=== PATIENT | female | born 1970 | race Caucasian/White ===

== ENCOUNTER 2016-04-02 15:53 | Emergency (ER) | payer OTHER ==
[2016-04-02 15:59] VITALS: BP 146/74; PULSE 85; TEMP 98; BMI 25.0
--- NOTE | 2016-04-02 16:25 | PDOC ---
History of Present Illness - General Chief Complaint: RX Refill Stated Complaint: i need a percocet refill Time Seen by Provider: 04/02/16 16:00 History Source: Patient Exam Limitations: No Limitations - History of Present Illness Initial Comments: 45 yo F history herniated discs, chronic neck and back pain presents requesting percocet refill. She follows up with pain management, states that her provider recommend that she "double up" on the percocet at nighttime for worsening pain. She states that she ran out of medication, and the soonest she can have an appointment is in 3 days. Denies N/V/D. Anxious and tearful on interview. Past History - Past Medical History Allergies/Adverse Reactions: Allergies Allergy/AdvReac Type Severity Reaction Status Date / Time No Known Allergies Allergy Verified 02/18/16 16:33 Home Medications: Ambulatory Orders Oxycodone HCl/Acetaminophen [Percocet 5/325 -] 10 mg PO Q4H 05/15/15 Alprazolam [Xanax] 2 mg PO DAILY 02/18/16 GI Disorders: Yes (congenital malrotation) Psychiatric Problems: Yes (anxiety) - Surgical History Abdominal Surgery: Yes (ovarian cyst ruture) Cholecystectomy: Yes - Family Disease History Family Disease History: Diabetes: Grandparents (paternal grandfather), Heart Disease: Grandparents - Psycho/Social/Smoking Cessation Hx Anxiety: Yes Suicidal Ideation: No Smoking Status: Yes Smoking History: Current every day smoker Number of Cigarettes Smoked Daily: 20 Information on smoking cessation initiated: Yes 'Breaking Loose' booklet given: 04/02/16 Hx Alcohol Use: No Drug/Substance Use Hx: No Substance Use Type: Prescribed Hx Substance Use Treatment: No Review of Systems - Review of Systems Able to Perform ROS?: Yes Comments:: GENERAL/CONSTITUTIONAL: No fever or chills. No weakness. HEAD, EYES, EARS, NOSE AND THROAT: No change in vision. No ear pain or discharge. No sore throat. CARDIOVASCULAR: No chest pain or shortness of breath. RESPIRATORY: No cough, wheezing, or hemoptysis. GASTROINTESTINAL: No nausea, vomiting, diarrhea or constipation. GENITOURINARY: No dysuria, frequency, or change in urination. MUSCULOSKELETAL: No joint or muscle swelling or pain. No neck or back pain. SKIN: No rash NEUROLOGIC: No headache, vertigo, loss of consciousness, or change in strength/ sensation. ENDOCRINE: No increased thirst. No abnormal weight change. HEMATOLOGIC/LYMPHATIC: No anemia, easy bleeding, or history of blood clots. ALLERGIC/IMMUNOLOGIC: No hives or skin allergy. *Physical Exam - Vital Signs Last Vital Signs Temp Pulse Resp BP Pulse Ox 98 F 85 18 146/74 100 04/02/16 15:54 04/02/16 15:54 04/02/16 15:54 04/02/16 15:54 04/02/16 15:54 - Physical Exam Comments: GENERAL: Awake, alert, and fully oriented, in no acute distress HEAD: No signs of trauma EYES: PERRLA, EOMI, sclera anicteric, conjunctiva clear ENT: Auricles normal inspection, hearing grossly normal, nares patent, oropharynx clear without exudates. Moist mucosa NECK: Normal ROM, supple, no lymphadenopathy, JVD, or masses EXTREMITIES: Normal range of motion, no edema. No clubbing or cyanosis. No cords, erythema, or tenderness NEUROLOGICAL: Cranial nerves II through XII grossly intact. Normal speech, normal gait SKIN: Warm, Dry, normal turgor, no rashes or lesions noted. Medical Decision Making - Medical Decision Making 04/02/16 16:35 Discussion with patient at bedside. We reviewed i-STOP report (reference # [id number]). She filled rx for percocet 10/325 on 03/11/16 for 120 tabs, 30 day supply. She subsequently filled rx for oxycodone ER 20mg tabs - 10 tabs on . This would mean that she was taking almost ten tabs per day of the 10/325 strength. I explained that I am not comfortable refilling medications of this strength, and that it is alarming how quickly she is using them. Best course of action would be to present to her pain management physician's office for follow- up, to request appointment. Medication like this should be consistently prescribed by the same provider, and followed carefully. *DC/Admit/Observation/Transfer Diagnosis at time of Disposition: Medication refill Chronic pain Qualifiers: Chronic pain type: chronic pain syndrome Qualified Code(s): G89.4 - Chronic pain syndrome Opiate dependence Qualifiers: Substance use status: uncomplicated Qualified Code(s): F11.20 - Opioid dependence, uncomplicated - Discharge Dispostion Disposition: HOME Condition at time of disposition: Stable Admit: No - Patient Instructions Printed Discharge Instructions: DI for Chronic Pain -- Adult
== END 2016-04-02 16:27 | disposition home or self-care (01) ==
LOC: FER 15:53
DX: Z76.0 Encounter for issue of repeat prescription (principal); G89.4 Chronic pain syndrome; F11.20 Opioid dependence, uncomplicated; F17.210 Nicotine dependence, cigarettes, uncomplicated
CPT/HCPCS: 99282-25

== ENCOUNTER 2016-08-04 06:01 | Inpatient (IN) | payer OTHER ==
[2016-07-29 12:12] VITALS: BMI 26.6
--- NOTE | 2016-08-04 07:50 | PN ---
Progress Note (short form) - Note Progress Note: NEUROSURGERY PREOP Significant other and father at bedside Tx'd (Cipro per PMD) for UTI after + WBC and leukocyte esterase in UA Neck pain and radicular symptoms without change Incision marked Expected OR time explained All questions answered at bedside Will obtain urine culture with Lagunas in OR
[2016-08-04] MEDS ORDERED: MIDAZOLAM HCL 2 MG/2 ML SINGLE DOSE VIAL ONE (08:12)
[2016-08-04] MEDS ORDERED: BACITRACIN 15 GM TUBE TOPICAL OINTMENT ONE (08:24)
[2016-08-04] MEDS ORDERED: ROCURONIUM BROMIDE 50 MG/5 ML VIAL ONE (08:25)
[2016-08-04] MEDS ORDERED: PROPOFOL 20 ML ONE ×17 (08:25→11:45)
[2016-08-04] MEDS ORDERED: ceFAZolin SODIUM 1 GM VIAL IVPB ONE (08:27)
[2016-08-04] MEDS ORDERED: CEFAZOLIN (PRE-DOCKED) 50 ML IVPB ONE (08:30)
[2016-08-04] MEDS ORDERED: ceFAZolin SODIUM 1 GM VIAL ONE ×2 (08:54→09:16)
[2016-08-04] MEDS ORDERED: LIDOCAINE HCL/PF 2% SDV 5ML VIAL ONE (08:54)
[2016-08-04] MEDS ORDERED: LIDOCAINE HCL 2% JELLY (5 ML/TUBE) ONE (08:54)
[2016-08-04] MEDS ORDERED: BENZOIN/ALOE VERA/STORAX/TOLU 58 ML BOTTLE ONE (08:54)
[2016-08-04] MEDS ORDERED: DEXAMETHASONE SOD PHOSPHATE 4 MG/1 ML VIAL ONE ×2 (09:16→12:12)
[2016-08-04] MEDS ORDERED: BACITRACIN 50,000 UNITS VIAL TP ONE (09:17)
[2016-08-04] MEDS ORDERED: BACITRACIN 50,000 UNITS VIAL IM ONE (10:19)
[2016-08-04] MEDS ORDERED: BUPIVACAINE HCL/PF 0.5% (5MG/ML) 10 ML VIAL IJ ONE (10:20)
[2016-08-04] MEDS ORDERED: THROMBIN (BOVINE) 5,000 UNIT VIAL TP ONE (10:20)
--- NOTE | 2016-08-04 12:07 | OP ---
Operative Note - Note: Operative Date: 08/04/16 Pre-Operative Diagnosis: C4-5, C5-6, C6-7 HNP, stenosis, radiculopathy Operation: Sathish long; anterior cervical discectomies C4-5, C5-6, C6-7 ; partial corpectomies C4,5,6,7; B foramenotomies C4-5, C5-6, C6-7 for decompression of cord and B C5,6,7 roots; interbody fusion C4-5, C5-6, C6-7; interbody implants C4-5, C5-6, C6-7; anterior instrumentation C4-7; microdissection Findings: Sensitive Roots B C5 and C6 > C7; fibrotic discs; stenosis in canal and prox foramen C4-5 and C5-6 > C6-7; severe degenerative disc space narrowing at C4-5, C5-6 > C6-7 Implants: Joel SPine Invizia 57 mm plate and 14 mm screws (fixed at C7 and variable at C4,5,6); 7 mm [place] interbody implant @ C6-7 and 6 mm implants @ C4 -5 and C5-6 Post-Operative Diagnosis: Same as Pre-op Surgeon: Salbador Arroyo Fitness Floor Attendant: Justine Cuellar Anesthesiologist/POOL TABLE OPERATOR: Monika Solitario MD Anesthesia: General Specimens Removed: C4-5, C5-6, C6-7 discs Estimated Blood Loss (mls): 50 Operative Report Dictated: Yes
[2016-08-04] MEDS ORDERED: ONDANSETRON 4 MG/2 ML VIAL IVPB PRN (12:11)
[2016-08-04] MEDS ORDERED: BACITRACIN 15 GM TUBE TOPICAL OINTMENT TP ONE (12:20)
[2016-08-04] MEDS ORDERED: DEXAMETHASONE SOD PHOSPHATE 4 MG/1 ML VIAL IVPUSH PRN (12:40)
[2016-08-04] MEDS ORDERED: HYDROmorphone *PCA* 10MG/50ML DISP.SYRIN PCA ONE ×2 (13:21→13:30)
--- NOTE | 2016-08-04 13:24 | PN ---
Progress Note (short form) - Note Progress Note: NEUROSURGERY In PACU Incisional pain In collar AF, VSS O2 sat 99% Motor at least 4-/5 B UE/LE Sensation grossly intact Dressing intact Findings d/e pt and family All questions answered MRI discs returned to family by RN TIMING MACHINE OPERATOR for pain C spine x-rays in AM
[2016-08-04] MEDS: HYDROmorphone *PCA* 10MG/50ML DISP.SYRIN PCA SCH (16:01)
[2016-08-04] MEDS: D5-1/2NS+20 MEQ KCL - 1,000 ML IV SCH ×2 (16:01→22:02)
[2016-08-04] MEDS: DOCUSATE SODIUM 100 MG CAPSULE (FP) PO SCH ×2 (16:01→22:05)
[2016-08-04] MEDS: LACTATED RINGERS SOLUTION 1,000 ML IV SCH (16:01)
[2016-08-04] MEDS: diazePAM 5 MG TABLET PO SCH ×2 (16:59→22:05)
[2016-08-04] MEDS: oxyCODONE HCL 5 MG TABLET PO PRN ×2 (18:29→22:05)
[2016-08-04] MEDS: CEFAZOLIN (PRE-DOCKED) 50 ML IVPB SCH (18:30)
[2016-08-05] MEDS: CEFAZOLIN (PRE-DOCKED) 50 ML IVPB SCH (01:20)
[2016-08-05] MEDS: HYDROmorphone *PCA* 10MG/50ML DISP.SYRIN PCA SCH ×3 (04:13→15:11)
[2016-08-05] MEDS: oxyCODONE HCL 5 MG TABLET PO PRN ×3 (04:17→14:47)
[2016-08-05] MEDS: diazePAM 5 MG TABLET PO SCH ×3 (05:45→21:07)
[2016-08-05] MEDS: DOCUSATE SODIUM 100 MG CAPSULE (FP) PO SCH ×3 (05:45→21:07)
--- NOTE | 2016-08-05 07:38 | PN ---
Progress Note (short form) - Note Progress Note: NEUROSURGERY POD #1 Incisional pain, muscle spasm and sore throat Able to pull herself up now (not able to do pre-op) Would like to go home Tmax 98.9, VSS PE: CV- RR; Lungs- CTA B; Abs- benign; Ext- no sign of DVT Dressing C/D/I- mild skin redness to adhesive; changed Motor UE 4+ B and improved Sensation grossly intact LT Urine culture pending C-collar fitting well C-spine X-rays today PT Pain meds D/C Lagunas Incentive spirometry
[2016-08-05] MEDS ORDERED: DEXAMETHASONE SOD PHOSPHATE 4 MG/1 ML VIAL IVPB ONE (09:30)
--- NOTE | 2016-08-05 10:43 | PN ---
Progress Note (short form) - Note Progress Note: Anesthesia postop note and pain management follow up 46y/o Fs/p GA for anterior cervical decompression and fusion c4c7, dilaudid watch case polisher POD#1, vss, aaox3, pain fairly well controlled, using watch case polisher Will continue watch case polisher. No anesthesia complications.
[2016-08-05] MEDS: D5-1/2NS+20 MEQ KCL - 1,000 ML IV SCH ×2 (11:03→12:14)
--- NOTE | 2016-08-05 11:29 | SURG ---
Surgery Photo Mask Processor Note Photo Mask Processor: Justine Cuellar PA-C Date of Service: 08/05/16 Diagnosis: C4-5, C5-6, C6-7 HNP, stenosis, radiculopathy Procedure: Sathish long; anterior cervical discectomies C4-5, C5-6, C6-7; partial corpectomies C4,5,6,7; B foramenotomies C4-5, C5-6, C6-7 for decompression of cord and B C5,6,7 roots; interbody fusion C4-5, C5-6, C6-7; interbody implants C4-5, C5-6, C6-7; anterior instrumentation C4-7; microdissection I was present for the entirety of the operative procedure. For further detail, please refer to operative report. Visit type - Case Type Case Type: Scheduled Admission - Emergency Emergency Visit: No - New patient This patient is new to me today: Yes Date on this admission: 08/05/16 - Critical Care Critical Care patient: No
[2016-08-05] MEDS: LACTATED RINGERS SOLUTION 1,000 ML IV SCH (13:58)
--- NOTE | 2016-08-05 14:41 | PATH ---
Surgical Pathology Report Patient Name: GEMA KNIGHT Med. Rec. #: [id number] /Age/Gender: 1970 (Age: 46) / F Account: [id number] Location: [facility] MED/SURG Taken: 08/04/2016 Received: 08/04/2016 Reported: 08/05/2016 Physicians: Salbador Arroyo M.D. Specimen(s) Received DISC C4-7 Clinical History Cervical disc displacement radiculopathy C4-7 Final Diagnosis INTERVERTEBRAL DISC, C4-7, ANTERIOR CERVICAL DECOMPRESSION FUSION: FRAGMENTS OF CARTILAGE WITH DEGENERATIVE CHANGES. Electronically Signed Kyle Larkin M.D. Gross Description Received in formalin labeled "disc C4-7" is a 3.0 x 1.7 x 0.3 cm aggregate of joyner fragments of fibrocartilaginous tissue. A direct marketing representative portion is submitted in one cassette, following decalcification. /08/04/201608/04/2016
[2016-08-05] MEDS: TAPENTADOL HYDROCHLORIDE 50 MG TABLET PO PRN (18:56)
[2016-08-06] MEDS: TAPENTADOL HYDROCHLORIDE 50 MG TABLET PO PRN ×5 (01:44→18:56)
[2016-08-06] MEDS: diazePAM 5 MG TABLET PO SCH ×3 (06:33→21:57)
[2016-08-06] MEDS: DOCUSATE SODIUM 100 MG CAPSULE (FP) PO SCH ×3 (06:34→21:57)
--- NOTE | 2016-08-06 07:18 | PN ---
Progress Note (short form) - Note Progress Note: NEUROSURGERY POD #2 Seen late last night again Incisional pain Sore throat better, received decadron earlier Able to void fine after Lagunas out Emotional at times, stating past psychological issues but could not tolerate meds Tmax 99, VSS PE: CV- RR; Lungs- CTA B; Abs- benign; Ext- no sign of DVT Dressing C/D/I- minimal skin redness to adhesive; changed Motor UE 4+ B and improved Sensation grossly intact LT Urine culture pending C-spine X-rays- prevertebral soft tissue swelling, implants intact C4-7 PT Pain meds changed Incentive spirometry Tentatively for discharge
--- NOTE | 2016-08-06 08:36 | PN ---
Progress Note (short form) - Note Progress Note: POD#2 The patient overall feels better. She had a bowel movement today and is tolerating clears. No difficulty swallowing but has some pain with swallowing. OOB yesterday with physical therapy and feels stronger in her right upper extremity. Vital Signs Period Temp Pulse Resp BP Sys/Silver Pulse Ox Last 24 Hr 97.6 F-99.0 F 58-79 18-18 116-149/66-90 98-98 PE: GEN: A&0x3, NAD CV: RRR Lungs: CTA b/l anteriorly Neck: dressing c/d/i, no evidence of hematoma/ecchymosis. soft. tegaderm in place with cervical collar. Neuro: Motor to right upper ext 4/5 b/l. Able to raise RUE unsupported to shoulder height(improved since surgery) sensation intact b/l LE: no evidence of swelling or calf tenderness. SCD/TEDs in place. Microbiology 08/04/16 09:20 Urine - Urine Clean Catch Urine Culture - Final NO GROWTH OBTAINED A/P: 46 yo male s/p anterior cervical discectomies interbody fusion C4-5, C5-6, C6-[address] Arroyo regarding her care Oral narcotic pain medications ordered as well as standing valium. Transition to oral pain meds and discontinue IV MISSILE INSPECTOR Clears for now and possible advance today as tolerated OOB and ambulate with physical therapy today Continue DVT ppx with SATNAM/SCDs
[2016-08-06] MEDS ORDERED: IBUPROFEN 600 MG TABLET (FP) PO PRN (10:16)
--- NOTE | 2016-08-06 10:19 | PN ---
Progress Note (short form) - Note Progress Note: Anesthesia follow up Doing well. taking oral liquids. Discontinuing the JIG AND FIXTURE BUILDER to oral pain meds Nancy Breaux MD.
[2016-08-06] MEDS ORDERED: ACETAMINOPHEN 325 MG TABLET (FP) PO PRN (12:32)
[2016-08-06] MEDS ORDERED: ACETAMINOPHEN 325 MG TABLET (FP) PO STA (12:40)
[2016-08-06] MEDS ORDERED: HYDROmorphone HCL CARPU-JECT 1 MG/1 ML DISP.SYRIN IVPB ONE ×2 (13:00)
[2016-08-06] MEDS ORDERED: HYDROmorphone HCL CARPU-JECT 1 MG/1 ML DISP.SYRIN ONE (13:00)
[2016-08-06] MEDS: ACETAMINOPHEN 325 MG TABLET (FP) PO SCH ×3 (14:58→21:57)
[2016-08-06] MEDS: D5-1/2NS+20 MEQ KCL - 1,000 ML IV SCH (15:59)
[2016-08-06] MEDS: LACTATED RINGERS SOLUTION 1,000 ML IV SCH (16:00)
[2016-08-06] MEDS: HYDROmorphone HCL CARPU-JECT 1 MG/1 ML DISP.SYRIN IVPB PRN (19:42)
[2016-08-07] MEDS: ACETAMINOPHEN 325 MG TABLET (FP) PO SCH ×3 (02:07→10:23)
[2016-08-07] MEDS: TAPENTADOL HYDROCHLORIDE 50 MG TABLET PO PRN ×2 (02:08→11:54)
[2016-08-07 05:57] VITALS: TEMP 97.6
[2016-08-07] MEDS: diazePAM 5 MG TABLET PO SCH (06:08)
[2016-08-07] MEDS: HYDROmorphone HCL CARPU-JECT 1 MG/1 ML DISP.SYRIN IVPB PRN (06:08)
[2016-08-07] MEDS: DOCUSATE SODIUM 100 MG CAPSULE (FP) PO SCH (06:09)
[2016-08-07 07:01] VITALS: BP 144/86; PULSE 79
[2016-08-07] MEDS ORDERED: ALPRAZolam 2 MG TABLET PO SCH ×2 (07:15)
--- NOTE | 2016-08-07 11:07 | OP ---
DATE OF OPERATION: 08/04/2016 PREOPERATIVE DIAGNOSES: 1. C4-5 and C5-6 greater than C6-7 degenerative disk protrusion with cervical stenosis and bilateral cervical radiculopathy. 2. History of right shoulder surgery. POSTOPERATIVE DIAGNOSES: 1. C4-5 and C5-6 greater than C6-7 degenerative disk protrusion with cervical stenosis and bilateral cervical radiculopathy. 2. History of right shoulder surgery. ATTENDING SURGEON: Salbador Arroyo MD PRACTICE BILLING ASSOCIATE: JONY Nguyễn ANESTHESIA: General endotracheal. ANESTHESIOLOGIST: Monika Solitario MD ESTIMATED BLOOD LOSS: 50 mL. PROCEDURE: 1. Preoperative placement and postoperative removal of cranial traction tongs for intraoperative traction (98792). 2. Anterior cervical microdiskectomy, C4-5, C5-6, and C6-7. 3. Microsurgical dissection with operating microscope and microsurgical technique (76833). 4. Partial corpectomy: C4, C5, C6, and C7, for spinal cord and proximal cervical root decompression including diskectomy and proximal neural foraminotomies bilaterally at C4-5, C5-6 and C6-7 (44284, 57075, 99339, and 06007). 5. Anterior cervical interbody fusion, C4-5, C5-6, and C6-7 (29419, 56672, and 54518). 6. Utilization of intervertebral lordotic bony prosthetic device from [employer] (at C4-5, C5-6, and C6-7) (91323, 01748-69, and 15459-19). 7. Anterior cervical instrumentation with Joel spine Invizia titanium system (57-mm titanium plate and 14-mm titanium screw at C4, C5, C6 and C7, with fixed angle screws at C7 and the remainder being variable angle screws) (89673). FINDINGS: 1. Severe degenerative disk space narrowing at C4-5, C5-6, greater than C6-7. 2. Extensive bilateral cervical roots, bilaterally at C5, C6, and C7. 3. Bilateral disk protrusion at C4-5 and C5-6, greater than C6-7. INDICATIONS: The patient is a 46-year-old female with a history of neck pain and cervical radiculopathy. Because of intractable symptoms and failure of conservative treatment, she is now consented for anterior cervical decompression and fusion with instrumentation. The risks of procedure include but are not limited to bleeding , infection, dural tear with CSF leak, neurological injury including thromboembolic risks, hoarseness, swallowing difficulties, and other risks of general anesthesia. The patient understands the indications for the procedure, procedure in detail, risks and benefits and alternatives for treatment of cervical spine condition, and wished to proceed. No guarantees given for a favorable outcome. Intraoperative SSEP, EMG and MEP signals were monitored. PROCEDURE IN DETAIL: The patient was taken to the operating room. She was placed in supine position. After general anesthesia was induced and appropriate lines were placed, SSEP, EMG, and MEP electrodes were placed by the optical lab technician. A Lagunas catheter was also inserted and urine culture was sent. The head was secured in Saldivar horseshoe in a neutral position. Cranial traction tongs were applied with bacitracin ointment. No traction weight was placed until baseline SSEP, EMG and MEP signals were obtained. The shoulders were taped on the sides. Anterior cervical region cleaned with alcohol and prepped with Betadine and local anesthesia was obtained. An approximately 2-1/2-inch incision was made with a number 10 blade. Skin was entered with Metzenbaum scissors. Self-retaining retractors were inserted. The platysma muscle was split longitudinally with the Metzenbaum scissors. Dissection proceeded medially through carotid sheath and longitudinally to trachea and esophagus. The prevertebral space was skeletonized with Kitners. One spinal needle each was inserted into C4-5 and C5-6 each, and after position was verified, longus colli muscles were reflected laterally with periosteal elevator and monopolar electrocautery and coagulated with bipolar electrocautery. Self-retaining radiolucent_ retractor system was inserted. A slightly more righted sided approach was chosen to address the predominantly right sided pathology and symptoms. At this point, annulus of C4-5 and C5-6 was incised with a number 15 blade. The disk space was so collapsed that the blade could not be turned vertically. Similarly, an annular incision was made at C4-5 and C6-7. This was done under direct vision. Diskectomy was first carried out at C5-6 but it was nearly impossible because of severe markedly degenerative disk space narrowing. Partial corpectomy at C5-6 was first carried out on the bottom vertebral body of C5 and top vertebral body of C6. Significant posterior osteophyte was noted encroaching on the spinal canal as well as the proximal neural foramen. This was burred down and resected with angled curette and Kerrison rongeur. A bilateral foraminotomy was carried out with angled curette and Kerrison rongeur. The AP diameter of disk space was sized to be approximately 16 mm. Epidural hemostasis was obtained with bipolar electrocautery and thrombin- soaked powdered Gelfoam. Attention was then turned to the C4-5 disk space, where diskectomy was similarly carried out. This was done with a combination of pituitary rongeur, straight- angled curette, as well as Kerrison rongeur. The posterior longitudinal ligament was resected with angled curette and Kerrison rongeur, and bilateral foraminotomy was carried out with angled curette and Kerrison rongeur after the uncovertebral joint was burred down with the help of the pneumatic drill. This helped gain access into the proximal neural foramen. Hemostasis was obtained with bipolar electrocautery. Finally, the partial corpectomy at C4 and C5 was also carried out in order to gain access to the spinal canal as well as the proximal neural foramen. Attention was then turned to the C6-7 interspace, where disk material was similarly removed. This level was slightly taller in height. Bilateral foraminotomy was similarly carried out, and hemostasis was obtained with bipolar electrocautery and thrombin-soaked powdered Gelfoam. Traction was slowly increased first from 0 to then 5 and then 10 pounds. The height in the disk space was 7 mm after the decompression at C6-7 and then 6 mm at C4-5 and C5-6. The 7-mm implant was first placed at C6 -7 and it was countersunk by 1 to 2 mm. This procedure was repeated at C5-6 and C4 -5, where 6-mm lordotic implants were placed and countersunk similarly. MEP signal remained stable throughout. There were no aberrant EMG activities. A 57-mm Invizia titanium plate was secured with fixation pins and 14-mm screws were used. Variable-angle screws were used at C4, C5, and C6, and fixed-angle screws were used at C7. The final cervical spine x-ray demonstrated satisfactory position of the implants. The locking mechanism/screw system were engaged. The wound was irrigated with copious amount of antibiotic and irrigation. A layer of surgical layered on top was placed as well as the dissection tract. Esophagus, trachea, as well as carotid sheath were all in good condition. At this point, the platysma muscle was approximated with 3-0 Vicryl sutures. Subcutaneous fascia was closed with 3-0 Vicryl sutures as well. Skin was closed with 4-0 Vicryl running subcuticular suture. Steri-Strips and sterile occlusive dressing was applied. Patient tolerated procedure well and was extubated in operating room. A rigid cervical collar was applied in the operating room. All needle and lap counts were correct. The patient received 1 dose of 1 g of Ancef and 10 mg of dexamethasone prior to the incision. Patient was starting to move bilateral upper and lower extremities well while in the operating room itself. All needle and lap counts were correct. The OR time-out procedure was followed. The patient's family was updated as to the intraoperative findings. SALBADOR ARROYO M.D. [id number] MTDD
[2016-08-07] MEDS ORDERED: oxyCODONE HCL 5 MG TABLET PO PRN (11:53)
--- NOTE | 2016-08-07 11:53 | PN ---
Progress Note (short form) - Note Progress Note: NEUROSURGERY POD #3 Incisional pain Multiple medication adjustments Sore throat better Able to void and had BM Emotional at times Significant other at bedside R shoulder pain mostly AF, VSS PE: CV- RR; Lungs- CTA B; Abs- benign; Ext- no sign of DVT Dressing C/D/I- minimal skin redness to adhesive; changed Motor UE 4+ B and improved Sensation grossly intact LT Urine culture pending C-spine X-rays- prevertebral soft tissue swelling, implants intact C4-7 CT C spine- C4-7 anterior decompression and instrumentation; implants intact; disc spaces restored PT Pain meds changed for discharge Add Neurontin Incentive spirometry Tentatively for discharge today later D/c and wound instructions given VNS
[2016-08-07] MEDS ORDERED: GABAPENTIN 300 MG CAPSULE (FP) PO SCH (14:00)
== END 2016-08-07 13:58 | disposition home or self-care (01) | DRG 23 ==
LOC: JSAMEDAYSX 06:01 → J8W 15:11
PROVIDERS: ADMIT Neurological Surgery; ATTEND Neurological Surgery
PROC: 0RG20J0 Fusion of 2 or more Cervical Vertebral Joints with Synthetic Substitute, Anterior Approach, Anterior Column, Open Approach (ICD-10-PCS; 2016-08-04)
PROC: 4A11X4G Monitoring of Peripheral Nervous Electrical Activity, Intraoperative, External Approach (ICD-10-PCS; 2016-08-04)
PROC: 0RT30ZZ Resection of Cervical Vertebral Disc, Open Approach (ICD-10-PCS; principal; 2016-08-04 08:00)
DX: M50.123 Cervical disc disorder at C6-C7 level with radiculopathy (principal); M48.02 Spinal stenosis, cervical region; J02.9 Acute pharyngitis, unspecified
CPT/HCPCS: 72050-TC; 72125-TC; 84703; 86850; 86900; 86901; 87086; 88304-TC; 94760; 97116-GP; 97161-GP

== ENCOUNTER 2016-08-20 01:14 | Emergency (ER) | payer OTHER ==
[2016-08-20 01:24] VITALS: TEMP 97.8; BMI 27.3
--- NOTE | 2016-08-20 03:31 | PDOC ---
History of Present Illness - General Chief Complaint: Lethargy Stated Complaint: NECK PAIN Time Seen by Provider: 08/20/16 01:23 - History of Present Illness Initial Comments: 08/20/16 03:45 CHIEF COMPLAINT: lethargy HISTORY OF PRESENT ILLNESS: 46 yo F with hx of h/o congenital "malrotation of bowel", chronic constipation,s/p faby, ovarian cyst rupture s/p oophorectomy/ salpingectomy, herniated disc s/p cervical spine surgery 2 weeks ago BIBEMS for lethargy. Per EMS patient was found sleeping in her car. Patient reports that she felt tired and called EMS herself. She states that she and her surgeon are trying to "wean her off the pain medications" and he started her on gabapentin recently, which makes her feel drowsy. She states she took one gabapentin yesterday around 11 pm and started feeling drowsy and like she couldn 't drive, so she called EMS. No recent travel or sick contacts. PAST MEDICAL HISTORY: as per HPI FAMILY HISTORY: Denies SOCIAL HISTORY: Denies tobacco, alcohol, illicit drug use. SURGICAL HISTORY: Denies ALLERGIES: No known drug allergies REVIEW OF SYSTEMS General/Constitutional: Denies fever or chills. Denies weakness, weight change. HEENT: Denies change in vision. Denies ear pain or discharge. Denies sore throat. Cardiovascular: Denies chest pain or shortness of breath. Respiratory: Denies cough, wheezing, or hemoptysis. Gastrointestinal: Denies nausea, vomiting, diarrhea or constipation. Denies rectal bleeding. Genitourinary: Denies dysuria, frequency, or change in urination. Musculoskeletal: Pain to neck s/p surgery. Skin and breasts: Denies rash or easy bruising. Neurologic: Denies headache, vertigo, loss of consciousness, or loss of sensation. PHYSICAL EXAM General Appearance: Somnolent. HEENT: EOMI, PERRLA. No conjunctival pallor. No photophobia, scleral icterus. Neck: Patient in cervical spine collar s/p surgery on 08/04. Respiratory/Chest: Lungs CTAB. Cardiovascular: RRR. S1, S2. Vascular Pulses: Dorsalis-Pedis (R): 2+, Dorsalis-Pedis (L): 2+ Gastrointestinal/Abdominal: Normal bowel sounds. Abdomen soft, non-distended. No tenderness or rebound tenderness. No organomegaly, pulsatile mass, guarding , hernia, hepatomegaly, splenomegaly. Musculoskeletal/Extremities: Normal inspection. FROM of all extremities, normal capillary refill. Pelvis Stable. No CVA tenderness. No tenderness to extremities, pedal edema, swelling, erythema or deformity. Integumentary: Appropriate color, dry, warm. 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 Fully oriented, alert. Appropriate mood/affect. Motor strength 5/5. No appreciable EOM palsy, facial droop or sensory deficit. 08/20/16 03:51 Past History - Past Medical History Allergies/Adverse Reactions: Allergies Allergy/AdvReac Type Severity Reaction Status Date / Time No Known Allergies Allergy Verified 08/20/16 01:20 Home Medications: Ambulatory Orders Alprazolam [Xanax] 2 mg PO PRN PRN 02/18/16 Bisacodyl [Ducodyl] 5 mg PO HS 07/29/16 Oxycodone HCl [Roxicodone -] 20 mg PO Q6H PRN #60 tablet MDD 4 08/07/16 Anemia: No GI Disorders: Yes (congenital malrotation) Psychiatric Problems: Yes (anxiety) Thyroid Disease: (NODULE - "WATCHING") - Surgical History Abdominal Surgery: Yes (ovarian cyst) Cholecystectomy: Yes Neurologic Surgery: Yes (cervical (neck)) Orthopedic Surgery: Yes (RT SHOULDER TEAR REPAIR) - Family Disease History Family Disease History: Diabetes: Grandparents (paternal grandfather), Heart Disease: Grandparents - Psycho/Social/Smoking Cessation Hx Anxiety: Yes Suicidal Ideation: No Smoking Status: Yes Smoking History: Current some day smoker Have you smoked in the past 12 months: Yes Number of Cigarettes Smoked Daily: 20 Information on smoking cessation initiated: No 'Breaking Loose' booklet given: 07/29/16 Hx Alcohol Use: No Drug/Substance Use Hx: No Substance Use Type: Prescribed Hx Substance Use Treatment: No *Physical Exam - Vital Signs Last Vital Signs Temp Pulse Resp BP Pulse Ox 97.8 F 86 16 131/80 96 08/20/16 01:22 08/20/16 01:22 08/20/16 01:22 08/20/16 01:22 08/20/16 01:22 ED Treatment Course - LABORATORY CBC & Chemistry Diagram: 08/20/16 03:55 08/20/16 03:55 Medical Decision Making - Medical Decision Making 08/20/16 03:59 46 yo F with hx of h/o congenital "malrotation of bowel", chronic constipation,s /p faby, ovarian cyst rupture s/p oophorectomy/salpingectomy, herniated disc s/ p cervical spine surgery 2 weeks ago BIBEMS for lethargy. Patient somnolent on arrival but VSS. Patient reassessed 1 hour later, continues to be lethargic but rousable and able to complete history and PE. Patient appears to be drowsy secondary to pain medications. -CBC, CMP, acetaminophen, salicylate -Utox -IVF [place] [facility] referenced. Patient Name: Alla Barber Date: 1970 Address: [address] [place] [address] Sex: Female Rx Written Rx Dispensed Drug Quantity Days Supply Prescriber Name 08/07/2016 08/07/2016 oxycodone hcl 20 mg tablet 60 15 Salbador Arroyo T MD 07/29/2016 07/29/2016 oxycodone-acetaminophen 10-325 mg tab 90 30 Sukhwinder Eastman 07/29/2016 07/29/2016 alprazolam 2 mg tablet 60 30 Sukhwinder Eastman 07/29/2016 07/29/2016 alprazolam 1 mg tablet 90 30 Sukhwinder Eastman 07/14/2016 07/16/2016 hydrocodone-acetaminophen 10-325 mg tablet 90 22 Aidan Taylor MD 07/01/2016 07/01/2016 oxycodone-acetaminophen 10-325 mg tab 28 7 Dharmesh Paez 07/01/2016 07/01/2016 alprazolam 2 mg tablet 60 30 Sukhwinder Eastman 05/26/2016 05/26/2016 alprazolam 2 mg tablet 60 30 Sukhwinder Eastman 05/09/2016 05/14/2016 hydrocodone-acetaminophen 10-325 mg tablet 120 30 Aidan Taylor MD 05/09/2016 05/10/2016 alprazolam 1 mg tablet 90 30 Sukhwinder Eastman 04/29/2016 04/29/2016 oxycodone-acetaminophen 10-325 mg tab 56 14 Sukhwinder Eastman 04/18/2016 04/18/2016 oxycodone-acetaminophen 10-325 mg tab 56 14 Sukhwinder Eastman Patient has received an alarming amount of pain medication within the last 3 weeks. Patient persistent complains of pain and is becoming agitated. Patient states "just give me the paperwork now so I can get out of here if you aren't going to give me pain medication." -30 mg IV Toradol *DC/Admit/Observation/Transfer Diagnosis at time of Disposition: Opiate dependence Qualifiers: Substance use status: with unspecified opioid-induced disorder Qualified Code(s ): F11.29 - Opioid dependence with unspecified opioid-induced disorder - Discharge Dispostion Disposition: HOME Condition at time of disposition: Stable Admit: No - Referrals Referrals: Salbador Arroyo MD [Staff Physician] - Germán Brooke MD [Staff Physician] - - Patient Instructions Printed Discharge Instructions: DI for Prescription Opioid Use Additional Instructions: You must follow up with a pain management doctor and discuss your dependence on opioids as well as how to better manage your pain. Please follow up with Dr. Arroyo for further management of post operative care. If you experience difficulty breathing, dizziness, chest pain, loss of consciousness, loss of sensation, or any new or worsening symptoms, please return to the ER.
[2016-08-20] MEDS ORDERED: SODIUM CHLORIDE 0.9% 1000 ML INFUS.BAG IV ONE (03:46)
[2016-08-20 03:59] LABS: EOSINOPHIL 6.3 % (0-4.5); MCH 30.1 pg (25.7-33.7); MCHC 33.1 g/dl (32.0-36.0); PLATELET COUNT 288 K/MM3 (134-434); WHITE BLOOD COUNT 5.2 K/mm3 (4.0-10.0)
[2016-08-20 04:30] LABS: ALBUMIN 3.3 g/dl (3.4-5.0); ALK PHOS 74 U/L (45-117); ANION GAP 5 (8-16); BILIRUBIN,TOTAL 0.3 mg/dL (0.2-1.0); CO2 30 mmol/L (21-32); CREATININE 0.7 mg/dL (0.55-1.02); GLUCOSE,RANDOM 96 mg/dL (74-106); SGOT/AST 21 U/L (15-37); SGPT/ALT 24 U/L (12-78); TOT PROT 6.4 g/dl (6.4-8.2)
[2016-08-20] MEDS ORDERED: KETOROLAC TROMETHAMINE 30 MG/1 ML VIAL IVPUSH ONE (04:44)
[2016-08-20] MEDS ORDERED: KETOROLAC TROMETHAMINE 30 MG/1 ML VIAL ONE (04:45)
[2016-08-20 04:48] LABS: SALICYLATE < 4.0 mg/dl (0.0-30.0)
[2016-08-20 05:57] VITALS: BP 131/85; PULSE 72
== END 2016-08-20 06:08 | disposition home or self-care (01) ==
LOC: JER 01:14
PROC: 3E0333Z Introduction of Anti-inflammatory into Peripheral Vein, Percutaneous Approach (ICD-10-PCS; principal; 2016-08-20)
DX: F11.29 Opioid dependence with unspecified opioid-induced disorder (principal); M54.2 Cervicalgia; Z98.890 Other specified postprocedural states
CPT/HCPCS: 36415; 80053; 80307; 85025; 99281-25

== ENCOUNTER 2016-11-28 15:08 | Emergency (ER) | payer OTHER ==
[2016-11-28 15:16] VITALS: BP 118/74; PULSE 72; TEMP 97.8; BMI 24.3
--- NOTE | 2016-11-28 15:17 | PDOC ---
History of Present Illness <Ting Andersen - Last Filed: 11/28/16 15:40> - General History Source: Patient Exam Limitations: No Limitations - History of Present Illness Initial Comments: 11/28/16 15:49 The patient is a 46 year old female with history of daily cigarette smoking who presents to the ED complaining of approximately 1 week of progressively worsening nonproductive cough. She also reports nasal congestion followed by chest congestion and mild shortness of breath. She states she believes her symptoms The patient denies fever or chills. She denies chest pain or peripheral edema. She denies nausea, vomiting, or diarrhea. <Yolie Selby - Last Filed: 11/28/16 15:54> - General Chief Complaint: Respiratory Stated Complaint: URI Time Seen by Provider: 11/28/16 15:16 Past History - Past Medical History Anemia: No Asthma: No Cancer: No Cardiac Disorders: No CVA: No COPD: No CHF: No Dementia: No Diabetes: No GI Disorders: Yes (congenital malrotation) Disorders: No HTN: No Hypercholesterolemia: No Liver Disease: No Psychiatric Problems: Yes (anxiety) Seizures: No Thyroid Disease: (NODULE - "WATCHING") - Surgical History Abdominal Surgery: Yes (ovarian cyst) Appendectomy: No Cholecystectomy: Yes Neurologic Surgery: Yes (cervical (neck)) Orthopedic Surgery: Yes (RT SHOULDER TEAR REPAIR) - Family Disease History Family Disease History: Diabetes: Grandparents (paternal grandfather), Heart Disease: Grandparents - Suicide/Smoking/Psychosocial Hx Smoking Status: Yes Smoking History: Current some day smoker Have you smoked in the past 12 months: Yes Number of Cigarettes Smoked Daily: 20 Information on smoking cessation initiated: Yes 'Breaking Loose' booklet given: 07/29/16 Hx Alcohol Use: No Drug/Substance Use Hx: No Substance Use Type: Prescribed Hx Substance Use Treatment: No <Ting Andersen - Last Filed: 11/28/16 15:40> <Yolie Selby - Last Filed: 11/28/16 15:54> - Past Medical History Allergies/Adverse Reactions: Allergies Allergy/AdvReac Type Severity Reaction Status Date / Time No Known Allergies Allergy Verified 11/28/16 15:08 Home Medications: Ambulatory Orders Azithromycin [Zithromax 250mg Tablets -] 250 mg PO UTDICT #6 tab 11/28/16 Guaifenesin AC [Robitussin AC -] 5 ml PO HS PRN #20 ml MDD 5 mL 11/28/16 Prednisone [Deltasone -] 40 mg PO DAILY #8 tablet 11/28/16 Review of Systems - Review of Systems Able to Perform ROS?: Yes Comments:: 11/28/16 15:52 GENERAL/CONSTITUTIONAL: No fever or chills. No weakness. HEAD, EYES, EARS, NOSE AND THROAT: +nasal congestion. No change in vision. No ear pain or discharge. No sore throat. CARDIOVASCULAR: No chest pain or peripheral edema. RESPIRATORY: +nonproductive cough, chest congestion, SOB. No hemoptysis. GASTROINTESTINAL: No nausea, vomiting, diarrhea or constipation. GENITOURINARY: No dysuria, frequency, or change in urination. MUSCULOSKELETAL: No joint or muscle swelling or pain. No neck or back pain. SKIN: No rash NEUROLOGIC: No headache, vertigo, loss of consciousness, or change in strength/ sensation. ENDOCRINE: No increased thirst. No abnormal weight change. HEMATOLOGIC/LYMPHATIC: No anemia, easy bleeding, or history of blood clots. ALLERGIC/IMMUNOLOGIC: No hives or skin allergy. <Yolie Selby - Last Filed: 11/28/16 15:54> *Physical Exam - Vital Signs Last Vital Signs Temp Pulse Resp BP Pulse Ox 97.8 F 72 20 118/74 97 11/28/16 15:08 11/28/16 15:08 11/28/16 15:08 11/28/16 15:08 11/28/16 15:08 - Physical Exam Comments: GENERAL: Awake, alert, and fully oriented, in no acute distress HEAD: No signs of trauma EYES: PERRLA, EOMI, sclera anicteric, conjunctiva clear ENT: Auricles normal inspection, hearing grossly normal, nares patent, oropharynx clear without exudates. Moist mucosa NECK: Normal ROM, supple, no lymphadenopathy, JVD, or masses LUNGS: Dec air entry B/L. No wheezes, and no crackles. Intermittent loose, hacking cough. HEART: Regular rate and rhythm, normal S1 and S2, no murmurs, rubs or gallops ABDOMEN: Soft, nontender, normoactive bowel sounds. No guarding, no rebound. No masses EXTREMITIES: Normal range of motion, no edema. No clubbing or cyanosis. No cords , erythema, or tenderness NEUROLOGICAL: Cranial nerves II through XII grossly intact. Normal speech, normal gait SKIN: Warm, Dry, normal turgor, no rashes or lesions noted. <Ting Andersen - Last Filed: 11/28/16 15:40> - Vital Signs Last Vital Signs Temp Pulse Resp BP Pulse Ox 97.8 F 72 20 118/74 97 11/28/16 15:08 11/28/16 15:08 11/28/16 15:08 11/28/16 15:08 11/28/16 15:08 <Yolie Selby - Last Filed: 11/28/16 15:54> Medical Decision Making - Medical Decision Making 11/28/16 15:40 Will give abx based on smoking history. I-stop reference #[id number] checked prior to rx for robitussin AC. Patient has regular prescribing pattern by two providers. <Ting Andersen - Last Filed: 11/28/16 15:40> *DC/Admit/Observation/Transfer - Discharge Dispostion Admit: No <Ting Andersen - Last Filed: 11/28/16 15:40> - Attestations Scribe Attestion: 11/28/16 15:53 Documentation prepared by Yolie Selby, acting as medical laboratory manager for Ting Andersen MD. <Yolie Selby - Last Filed: 11/28/16 15:54> Diagnosis at time of Disposition: Bronchitis - Discharge Dispostion Disposition: HOME Condition at time of disposition: Stable - Prescriptions Prescriptions: Prednisone [Deltasone -] 40 mg PO DAILY #8 tablet Guaifenesin AC [Robitussin AC -] 5 ml PO HS PRN #20 ml MDD 5 mL PRN Reason: Cough Azithromycin [Zithromax 250mg Tablets -] 250 mg PO UTDICT #6 tab - Patient Instructions Printed Discharge Instructions: DI for Acute Bronchitis
[2016-11-28] MEDS ORDERED: ALBUTEROL SO4 2.5/IPRATROPIUM 0.5 INH SOL 3 ML VIAL.NEB. NEB ONE ×2 (15:33→15:54)
== END 2016-11-28 16:27 | disposition home or self-care (01) ==
LOC: FER 15:08
PROC: 3E0F7GC Introduction of Other Therapeutic Substance into Respiratory Tract, Via Natural or Artificial Opening (ICD-10-PCS; principal; 2016-11-28)
DX: J40 Bronchitis, not specified as acute or chronic (principal)
CPT/HCPCS: 99282-25

== ENCOUNTER 2016-12-23 09:41 | Emergency (ER) | payer OTHER ==
[2016-12-23 09:59] VITALS: TEMP 97.5; BMI 26.8
--- NOTE | 2016-12-23 10:21 | PDOC ---
History of Present Illness - General History Source: Patient Exam Limitations: No Limitations - History of Present Illness Initial Comments: 12/23/16 15:58 The patient is a 46 year old female with a significant PMH of chronic pain and PTSD who presents to the emergency department s/p suicidal threat. The patient reports having an argument with her boyfriend over rent money and getting kicked out of the house, after which she threatened to swallow a bottle of pills to kill herself when he said soething to the effect of her being better off . The patient states that the police were called on her, and after being questioned by them they called EMS was sent to the ED for evaluation. The patient denies having an intention to kill herself, and states that it was merely a threat in response to her boyfriend. The patient acknowledges significant social stressors in her life, including worrying about how to finance her daughters education and being unable to go the gym as often due to her chronic neck pain. The patient also states recurrent nightmares for the past 2 months which has affected her sleep pattern, and has noted a reduced appetite from childhood. The patient has a regular therapist (Melody Calvo) who she will be seeing tomorrow after over 6 months. She notes that she always feels better after paying Miss Calvo a visit. Pt deines any history of suicidal attempts or ideation. The patient denies chest pain, shortness of breath, headache and dizziness. Denies fever, chills, nausea, vomit, diarrhea and constipation. Denies dysuria, frequency, urgency and hematuria. Allergies: NKA Past surgical history: Ovarian cyst removal. Cervical neck neurosurgery. Right shoulder tear repair. Social history: Everyday smoker. Moderate alcohol use. No reported drug use. PCP: Dr. Eastman Therapist: Melody Calvo <Calixto Rodgers - Last Filed: 12/23/16 15:58> <Dewey Savage - Last Filed: 12/23/16 16:53> - General Chief Complaint: Suicidal Stated Complaint: PANIC ATTACK Time Seen by Provider: 12/23/16 09:51 Past History <Calixto Rodgers - Last Filed: 12/23/16 15:58> - Past Medical History Anemia: No Asthma: No Cancer: No Cardiac Disorders: No CVA: No COPD: No CHF: No Dementia: No Diabetes: No GI Disorders: Yes (congenital malrotation) Disorders: No HTN: No Hypercholesterolemia: No Liver Disease: No Psychiatric Problems: Yes (PTSD ANXIETY AND DEPRESSION) Seizures: No Thyroid Disease: (NODULE - "WATCHING") - Surgical History Abdominal Surgery: Yes (ovarian cyst) Appendectomy: No Cholecystectomy: Yes Neurologic Surgery: Yes (cervical (neck)) Orthopedic Surgery: Yes (RT SHOULDER TEAR REPAIR) - Family Disease History Family Disease History: Diabetes: Grandparents (paternal grandfather), Heart Disease: Grandparents - Suicide/Smoking/Psychosocial Hx Smoking Status: Yes Smoking History: Current every day smoker Have you smoked in the past 12 months: Yes Number of Cigarettes Smoked Daily: 10 Information on smoking cessation initiated: Yes 'Breaking Loose' booklet given: 11/28/16 Hx Alcohol Use: Yes Drug/Substance Use Hx: No Substance Use Type: None Hx Substance Use Treatment: No <Dewey Savage - Last Filed: 12/23/16 16:53> - Past Medical History Allergies/Adverse Reactions: Allergies Allergy/AdvReac Type Severity Reaction Status Date / Time No Known Allergies Allergy Verified 12/23/16 09:51 Home Medications: Ambulatory Orders Alprazolam [Xanax] 2 mg PO BID 12/23/16 Oxycodone HCl/Acetaminophen [Percocet 10-325 mg Tablet] 1 tab PO Q4H PRN Review of Systems - Review of Systems Able to Perform ROS?: Yes Comments:: 12/23/16 15:58 Constitutional - (+) Reduced appetite. (+) Difficulty sleeping. Pt denies Fever , Chills, weakness, HEENT: denies vision changes, sore throat Respiratory: Denies cough, sob, hemoptysis Cardiac: denies chest pain, palpitations, light headedness, leg swelling Abd/GI: denies abd pain, nausea, vomiting, blood per rectum, melena, diarrhea : denies dysuria, frequency, discharge Musculoskelatal - denies back pain, joint swelling skin - denies bruising, erythema, rash neurological: denies headache, numbness, focal weakness, tingling, ataxia, weakness hematologic: denies anemia, easy bruising, easy bleeding <Calixto Rodgers - Last Filed: 12/23/16 15:58> *Physical Exam - Vital Signs Last Vital Signs Temp Pulse Resp BP Pulse Ox 97.5 F L 72 18 125/70 97 12/23/16 09:52 12/23/16 09:52 12/23/16 09:52 12/23/16 09:52 12/23/16 09:52 - Physical Exam Comments: 12/23/16 15:58 GENERAL: The patient is awake, alert, and fully oriented, Nontoxic - in no acute distress. HEAD: Normocephalic, atraumatic. EYES: extraocular movements intact, sclera anicteric, conjunctiva clear. ENT: Normal voice, Moist mucous membranes. NECK: Normal range of motion, supple without lymphadenopathy, JVD, or masses. LUNGS: Breath sounds equal, clear to auscultation bilaterally. No wheezes, no crackles, no rales. HEART: Regular rate and rhythm, normal S1 and S2 without murmur, rub or gallop. ABDOMEN: Soft, nontender, normoactive bowel sounds. No guarding, no rebound. No masses. EXTREMITIES: Normal range of motion, no edema. No clubbing or cyanosis. No cords, erythema, or tenderness. NEUROLOGICAL: No facial assymetry, Normal speech, normal gait. PSYCH: (+) Reduced motivation to do tasks. (+) Social stressors, denies SI or HI , normal affect SKIN: Warm, Dry, normal turgor, no rashes or lesions noted. <Calixto Rodgers - Last Filed: 12/23/16 15:58> - Vital Signs Last Vital Signs Temp Pulse Resp BP Pulse Ox 97.5 F L 72 18 125/70 97 12/23/16 09:52 12/23/16 09:52 12/23/16 09:52 12/23/16 09:52 12/23/16 09:52 <Dewey Savage - Last Filed: 12/23/16 16:53> Medical Decision Making - Medical Decision Making 12/23/16 10:19 46y F hx of chronic pain, presents with threatening to take pills after her boyfriend states he wishes she was - howver pt immediately states wishes didn't as she didnt mean to do it. Her boyfriend called the police who called EMS. The pt denies any history of SI or attempts. She state she would never do it because she has a child and who would help her daugther if she was gone. The pt does exhibit some sypmtoms of depression based on her life circumstances (ieL limitations in her gym activity due to mutliple ortho surgeries), however she states she compensates by walking alot. Pt does say that her live weighs on her due ot financial issues, and stays she typically has a poor appetite for many years (since young). She does not necessarily feel bad about herself, but feels that her financial issues feels like she is not providing enough for her child. 12/23/16 11:13 case dw Melody Calvo( the pts therapist) - states that she does not think she has a history of SI or SA, but she is not an active pt with their practice and would request psych consult due to hx of depression and the fact that she has had a hard life dw HERLINDA Fields, will see pt in pm 12/23/16 16:47 HERLINDA Fields saw the pt pt is cleareed from psuch stand point will dc the pt home to fu with her therapist tomorrow return precautions were discussed I discussed the physical exam findings, ancillary test results and final diagnoses with the patient. I answered all of the patient's questions. The patient was satisfied with the care received and felt comfortable with the discharge plan and treatment plan. The patient will call their primary care physician within 24 hours to arrange follow-up and will return to the Emergency Department with any new, persistent or worsening symptoms. <Dewey Savage - Last Filed: 12/23/16 16:53> *DC/Admit/Observation/Transfer - Attestations Scribe Attestion: 12/23/16 15:58 Documentation prepared by Calixto Rodgers, acting as bio medical technician for Dewey Savage MD. <Calixto Rodgers - Last Filed: 12/23/16 15:58> - Discharge Dispostion Admit: No <Dewey Savage - Last Filed: 12/23/16 16:53> Diagnosis at time of Disposition: Depression Qualifiers: Depression Type: unspecified Qualified Code(s): F32.9 - Major depressive disorder, single episode, unspecified - Discharge Dispostion Disposition: HOME Condition at time of disposition: Improved - Referrals Referrals: Melody Calvo [Other] - Patient Instructions Printed Discharge Instructions: DI for Depression -- Adult Additional Instructions: Return to the emergency department immediately with ANY new, persistent or worsening symptoms. You MUST call and follow up with your therapist hina as scheduled for further evaluation of your symptoms. Results were discussed with you. Please make sure your doctor reviews the results of your emergency evaluation. - Post Discharge Activity Forms/Work/School Notes: My Personal Safety Plan
[2016-12-23 17:02] VITALS: BP 124/77; PULSE 88
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
== END 2016-12-23 17:00 | disposition home or self-care (01) ==
LOC: JER 09:41
DX: F32.9 Major depressive disorder, single episode, unspecified (principal); F43.10 Post-traumatic stress disorder, unspecified; F41.8 Other specified anxiety disorders; F17.210 Nicotine dependence, cigarettes, uncomplicated
CPT/HCPCS: 99282-25

== ENCOUNTER 2017-02-02 13:03 | Emergency (ER) | payer OTHER ==
[2017-02-02 13:25] VITALS: BP 137/81; PULSE 95; TEMP 97.9; BMI 24.3
--- NOTE | 2017-02-02 14:16 | PDOC ---
History of Present Illness - General History Source: Patient Exam Limitations: No Limitations - History of Present Illness Initial Comments: 02/02/17 14:25 The patient is a 46 year old female with a significant PMH of depression and anxiety who presents to the emergency department s/p neck surgery for a pain med prescription refill. She has been unable to get in contact with her pain specialist prompting her visit to the ER today. Prior to today's visit, she contacted her PMD who said he will be getting her a week's worth of pain medication. <Bhavna Ruvalcaba - Last Filed: 02/02/17 14:25> <Keyanna Love - Last Filed: 02/02/17 14:35> - General Chief Complaint: RX Refill Stated Complaint: NECK PROBLEM Past History <Bhavna Ruvalcaba - Last Filed: 02/02/17 14:25> - Past Medical History Anemia: No Asthma: No Cancer: No Cardiac Disorders: No CVA: No COPD: No CHF: No Dementia: No Diabetes: No GI Disorders: Yes (congenital malrotation) Disorders: No HTN: No Hypercholesterolemia: No Liver Disease: No Psychiatric Problems: Yes (PTSD ANXIETY AND DEPRESSION) Seizures: No Thyroid Disease: (NODULE - "WATCHING") - Surgical History Abdominal Surgery: Yes (ovarian cyst) Appendectomy: No Cholecystectomy: Yes Neurologic Surgery: Yes (cervical (neck)) Orthopedic Surgery: Yes (RT SHOULDER TEAR REPAIR) - Family Disease History Family Disease History: Diabetes: Grandparents (paternal grandfather), Heart Disease: Grandparents - Suicide/Smoking/Psychosocial Hx Smoking Status: Yes Smoking History: Current every day smoker Have you smoked in the past 12 months: Yes Number of Cigarettes Smoked Daily: 18 Information on smoking cessation initiated: No 'Breaking Loose' booklet given: 11/28/16 Hx Alcohol Use: Yes Drug/Substance Use Hx: No Substance Use Type: None Hx Substance Use Treatment: No <Keyanna Love - Last Filed: 02/02/17 14:35> - Past Medical History Allergies/Adverse Reactions: Allergies Allergy/AdvReac Type Severity Reaction Status Date / Time No Known Allergies Allergy Verified 02/02/17 13:22 Home Medications: Ambulatory Orders Alprazolam [Xanax] 2 mg PO BID 12/23/16 Review of Systems - Review of Systems Able to Perform ROS?: Yes Comments:: 02/02/17 14:29 GENERAL/CONSTITUTIONAL: No fever or chills. No weakness. HEAD, EYES, EARS, NOSE AND THROAT: No change in vision. No ear pain or discharge. No sore throat. CARDIOVASCULAR: No chest pain or shortness of breath. RESPIRATORY: No cough, wheezing, or hemoptysis. GASTROINTESTINAL: No nausea, vomiting, diarrhea or constipation. GENITOURINARY: No dysuria, frequency, or change in urination. MUSCULOSKELETAL: (+) Neck pain. No joint or muscle swelling or pain. No back pain. SKIN: No rash NEUROLOGIC: No headache, vertigo, loss of consciousness, or change in strength/ sensation. ENDOCRINE: No increased thirst. No abnormal weight change. HEMATOLOGIC/LYMPHATIC: No anemia, easy bleeding, or history of blood clots. ALLERGIC/IMMUNOLOGIC: No hives or skin allergy. <Bhavna Ruvalcaba - Last Filed: 02/02/17 14:25> *Physical Exam - Vital Signs Last Vital Signs Temp Pulse Resp BP Pulse Ox 97.9 F 95 H 22 137/81 100 02/02/17 13:22 02/02/17 13:22 02/02/17 13:22 02/02/17 13:22 02/02/17 13:22 - Physical Exam Comments: 02/02/17 14:30 ADULT EXAM GENERAL: Awake, alert, and fully oriented, in no acute distress HEAD: No signs of trauma EYES: PERRLA, EOMI, sclera anicteric, conjunctiva clear ENT: Auricles normal inspection, hearing grossly normal, nares patent, oropharynx clear without exudates. Moist mucosa NECK: Normal ROM, supple, no lymphadenopathy, JVD, or masses LUNGS: Breath sounds equal, clear to auscultation bilaterally. No wheezes, and no crackles HEART: Regular rate and rhythm, normal S1 and S2, no murmurs, rubs or gallops ABDOMEN: Soft, nontender, normoactive bowel sounds. No guarding, no rebound. No masses EXTREMITIES: Normal range of motion, no edema. No clubbing or cyanosis. No cords, erythema, or tenderness NEUROLOGICAL: Cranial nerves II through XII grossly intact. Normal speech, normal gait SKIN: Warm, Dry, normal turgor, no rashes or lesions noted. <Bhavna Ruvalcaba - Last Filed: 02/02/17 14:25> - Vital Signs Last Vital Signs Temp Pulse Resp BP Pulse Ox 97.9 F 95 H 22 137/81 100 02/02/17 13:22 02/02/17 13:22 02/02/17 13:22 02/02/17 13:22 02/02/17 13:22 <IvanKeyanna - Last Filed: 02/02/17 14:35> Medical Decision Making - Medical Decision Making 02/02/17 14:17 A/P: Patient here requesting refill of pain medication last filled on 2016 patient reports upon arrival to emergency department she finally got in touch with her primary care doctor who says is calling in a week's worth of medication she does not need the medicine now. We'll DC patient home, follow-up with PMD and chronic pain management. This report was requested by: Keyanna Love | Reference #: [id number] You have not added a MEEK number. Keeping your MEEK number(s) up to date on the My MEEK Numbers page will enable the separation of your prescriptions from others ' in the search results. Others' Prescriptions Patient Name: Alla Barber Date: 1970 Address: [address] [place] [address] Sex: Female Rx Written Rx Dispensed Drug Quantity Days Supply Prescriber Name 01/02/2017 01/02/2017 hydrocodone-acetaminophen 10-325 mg tablet 90 22 Aidan Taylor MD 12/30/2016 12/30/2016 oxycodone hcl 20 mg tablet 21 7 Salbador Arroyo T MD 11/28/2016 11/28/2016 cheratussin ac syrup 20ml 4 Ting Andersen) 11/05/2016 11/05/2016 oxycodone hcl 20 mg tablet 21 7 Salbador Arroyo T MD 11/05/2016 11/05/2016 oxycodone hcl 20 mg tablet 21 7 Salbador Arroyo T MD Patient Name: Alla Barber Date: 1970 Address: [address] [place] [address] Sex: Female Rx Written Rx Dispensed Drug Quantity Days Supply Prescriber Name 10/20/2016 10/21/2016 oxycodone hcl 20 mg tablet 30 10 Salbador Arroyo T MD 09/19/2016 09/22/2016 oxycodone hcl 20 mg tablet 60 30 Salbador Arroyo T MD 08/29/2016 08/29/2016 endocet 10-325 mg tablet 90 30 Sukhwinder Eastman 08/29/2016 08/29/2016 alprazolam 1 mg tablet 60 30 Sukhwinder Eastman 08/20/2016 08/20/2016 oxycodone hcl 20 mg tablet 60 15 Salbador Arroyo T MD 08/07/2016 08/07/2016 oxycodone hcl 20 mg tablet 60 15 Salbador Arroyo T MD 07/29/2016 07/29/2016 oxycodone-acetaminophen 10-325 mg tab 90 30 Sukhwinder Eastman 07/29/2016 07/29/2016 alprazolam 2 mg tablet 60 30 Sukhwinder Eastman 07/29/2016 07/29/2016 alprazolam 1 mg tablet 90 30 Sukhwinder Eastman 07/14/2016 07/16/2016 hydrocodone-acetaminophen 10-325 mg tablet 90 22 Aidan Taylor MD 07/01/2016 07/01/2016 oxycodone-acetaminophen 10-325 mg tab 28 7 Dharmesh Paez 07/01/2016 07/01/2016 alprazolam 2 mg tablet 60 30 Sukhwinder Eastman 05/26/2016 05/26/2016 alprazolam 2 mg tablet 60 30 Sukhwinder Eastman 05/09/2016 05/14/2016 hydrocodone-acetaminophen 10-325 mg tablet 120 30 Aidan Taylor MD 05/09/2016 05/10/2016 alprazolam 1 mg tablet 90 30 Sukhwinder Eastman 04/29/2016 04/29/2016 oxycodone-acetaminophen 10-325 mg tab 56 14 Sukhwinder Eastman 04/18/2016 04/18/2016 oxycodone-acetaminophen 10-325 mg tab 56 14 Sukhwinder Eastman 04/02/2016 04/03/2016 hydrocodone-acetaminophen 10-325 mg tablet 60 30 Pavel Sheth A () 03/19/2016 04/02/2016 alprazolam 2 mg tablet 60 30 Rafael Cardona 03/20/2016 03/24/2016 oxycodone hcl er 20 mg tablet 10 10 Sukhwinder Eastman 03/11/2016 03/11/2016 oxycodone-acetaminophen 10-325 mg tab 120 30 Keyanna Escobar NP 02/20/2016 03/04/2016 alprazolam 2 mg tablet 60 30 Rafael Cardona 02/11/2016 02/12/2016 oxycodone-acetaminophen 10-325 mg tab 120 30 Sarah Mitchell MD 01/29/2016 02/04/2016 alprazolam 2 mg tablet 60 30 Ronald Saunders MD 02/02/17 14:32 <Keyanna Love - Last Filed: 02/02/17 14:35> *DC/Admit/Observation/Transfer - Attestations Scribe Attestion: 02/02/17 14:31 Documentation prepared by Bhavna Ruvalcaba, acting as faculty i on call medical assistant for Emergency Dept,Physician, ACCOUNTS PAYABLE ASSISTANT. 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 - Post Discharge Activity
== END 2017-02-02 14:39 | disposition home or self-care (01) ==
LOC: JERFT 13:03
DX: G89.4 Chronic pain syndrome (principal); Z76.0 Encounter for issue of repeat prescription; F41.8 Other specified anxiety disorders; F43.10 Post-traumatic stress disorder, unspecified; F17.210 Nicotine dependence, cigarettes, uncomplicated
CPT/HCPCS: 99281-25

== ENCOUNTER 2018-04-19 14:54 | Emergency (ER) | payer OTHER ==
[2018-04-19 15:14] VITALS: BMI 28.1
[2018-04-19] MEDS ORDERED: KETOROLAC TROMETHAMINE 30 MG/1 ML VIAL IVPUSH ONE (15:27)
[2018-04-19] MEDS ORDERED: ONDANSETRON 4 MG/2 ML VIAL IVPUSH ONE (15:27)
[2018-04-19] MEDS ORDERED: SODIUM CHLORIDE 1,000 ML IV STA (15:27)
--- NOTE | 2018-04-19 15:27 | PDOC ---
History of Present Illness - General Chief Complaint: Back Pain Stated Complaint: LOW BACK PAIN Time Seen by Provider: 04/19/18 15:22 History Source: Patient Past History - Past Medical History Allergies/Adverse Reactions: Allergies Allergy/AdvReac Type Severity Reaction Status Date / Time No Known Allergies Allergy Verified 02/02/17 13:22 Home Medications: Ambulatory Orders Alprazolam [Xanax] 2 mg PO BID 12/23/16 Ibuprofen [Motrin -] 800 mg PO QID PRN #30 tablet 04/19/18 Ondansetron HCl [Zofran] 4 mg PO TID PRN #12 tablet 04/19/18 Sulfamethoxazole/Trimethoprim [Bactrim Ds -] 1 tab PO BID #14 tablet 04/19/18 Anemia: No Asthma: No Cancer: No Cardiac Disorders: No CVA: No COPD: No CHF: No Dementia: No Diabetes: No GI Disorders: Yes (congenital malrotation) Disorders: No HTN: No Hypercholesterolemia: No Liver Disease: No Psychiatric Problems: Yes (PTSD ANXIETY AND DEPRESSION) Seizures: No Thyroid Disease: (NODULE - "WATCHING") - Surgical History Abdominal Surgery: Yes (ovarian cyst) Appendectomy: No Cholecystectomy: Yes Neurologic Surgery: Yes (cervical (neck)) Orthopedic Surgery: Yes (RT SHOULDER TEAR REPAIR) - Family Disease History Family Disease History: Diabetes: Grandparents (paternal grandfather), Heart Disease: Grandparents - Suicide/Smoking/Psychosocial Hx Smoking Status: Yes Smoking History: Never smoked Have you smoked in the past 12 months: Yes Number of Cigarettes Smoked Daily: 18 'Breaking Loose' booklet given: 11/28/16 Hx Alcohol Use: No Drug/Substance Use Hx: No Substance Use Type: None Hx Substance Use Treatment: No Review of Systems - Review of Systems Constitutional: No: Fever ABD/GI: Yes: Nausea. No: Constipated, Diarrhea, Vomiting, Abdominal cramping : Yes: Dysuria, Frequency, Flank Pain. No: Hematuria *Physical Exam - Vital Signs Last Vital Signs Temp Pulse Resp BP Pulse Ox 99.1 F 112 H 19 135/64 99 04/19/18 15:12 04/19/18 15:12 04/19/18 15:12 04/19/18 15:12 04/19/18 15:12 - Physical Exam General Appearance: Yes: Appropriately Dressed, Moderate Distress HEENT: positive: Normal Voice Neck: positive: Supple Respiratory/Chest: negative: Respiratory Distress Gastrointestinal/Abdominal: positive: Normal Bowel Sounds, Soft. negative: Tender, Distended, Guarding, Rebound Musculoskeletal: positive: CVA Tenderness (L) Integumentary: positive: Dry, Warm Neurologic: positive: Fully Oriented, Alert, Normal Mood/Affect Moderate Sedation - Procedure Monitoring Vital Signs: Procedure Monitoring Vital Signs Temperature 99.1 F 04/19/18 15:12 Pulse Rate 112 H 04/19/18 15:12 Respiratory Rate 04/19/18 15:12 Blood Pressure 135/64 04/19/18 15:12 O2 Sat by Pulse Oximetry (%) 99 04/19/18 15:12 ED Treatment Course - LABORATORY CBC & Chemistry Diagram: 04/19/18 15:51 04/19/18 15:45 Medical Decision Making - Medical Decision Making 04/19/18 15:26 47-year-old female, smoker, history of PTSD, chronic neck pain, s/p surgery, chronic lower back pain, recurrent UTI, p/w dysuria with urinary frequency and L flank pain x several days. + nausea, no vomiting, fever or chills. No h/o renal stones per pt See exam R/o pyelo, less likely stone Tachy to 112 and shannon uncomfortable w/ L CVAT -pain control -zofran -IVF -labs/ua -flu swab given sick contact recently 04/19/18 15:47 04/19/18 16:33 Pt spiked temp of 102F. Tylenol and IVF in progress. UA w/ 2+ LE, 2+ bld and > 70 wbc, will give 1 dose of IV ceftriaxone (no prior sensitivity on record). Will also get CT r/o stone 04/19/18 17:41 04/19/18 18:29 CT read as mild L hydroureteronephrosis down to level of lower pelvis w/ associated mild perirenal/periureteral stranding, reflecting possible recently passed stone, no ureteral/renal stone actually visualized. Repeat vitals improved and patient reports feeling significantly better at this time. Was able to tolerate po here. Admission offered to patient who refuses at this time. States she would prefer to be discharged with antibiotics and to return as needed *DC/Admit/Observation/Transfer Diagnosis at time of Disposition: Pyelonephritis - Discharge Dispostion Disposition: HOME Condition at time of disposition: Improved - Prescriptions Prescriptions: Ibuprofen [Motrin -] 800 mg PO QID PRN #30 tablet PRN Reason: Lower Back Pain Ondansetron HCl [Zofran] 4 mg PO TID PRN #12 tablet PRN Reason: Nausea And/Or Vomiting Sulfamethoxazole/Trimethoprim [Bactrim Ds -] 1 tab PO BID #14 tablet - Referrals Referrals: Dharmesh Paez MD [Primary Care Provider] - - Patient Instructions Printed Discharge Instructions: Kidney Infection Additional Instructions: You were treated for a kidney infection. Take antibiotics as prescribed. Take Motrin for pain and or fever, zofran for nausea and maintain adequate hydration. If symptoms persist and/or worsen, return to the ED immediately - Post Discharge Activity Forms/Work/School Notes: Back to Work
--- NOTE | 2018-04-19 15:34 | PDOC ---
*Physical Exam - Vital Signs Last Vital Signs Temp Pulse Resp BP Pulse Ox 99.1 F 112 H 19 135/64 99 04/19/18 15:12 04/19/18 15:12 04/19/18 15:12 04/19/18 15:12 04/19/18 15:12 Medical Decision Making - Medical Decision Making 04/19/18 15:33 Pt seen by the Advanced Practice Provider under my direct supervision Ancillary studies reviewed I agree with plan as outlined by the Advanced Practice Provider JONY Stewart *DC/Admit/Observation/Transfer - Referrals Referrals: Dharmesh Paez MD [Primary Care Provider] - - Patient Instructions - Post Discharge Activity
[2018-04-19] MEDS ORDERED: ONDANSETRON 4 MG/2 ML VIAL ONE (15:35)
[2018-04-19] MEDS ORDERED: KETOROLAC TROMETHAMINE 30 MG/1 ML VIAL ONE (15:35)
[2018-04-19 16:11] LABS: URINE APPEARANCE SLCLOUDY; URINE BILIRUBIN NEGATIVE (<2.0 mg/dL); URINE COLOR STRAW; URINE GLUCOSE (UA) NEGATIVE (NEGATIVE); URINE KETONE NEGATIVE (NEGATIVE); URINE LEUK ESTERASE 2+ (NEGATIVE); URINE NITRITE NEGATIVE (NEGATIVE); URINE PROTEIN 1+ (NEGATIVE); URINE UROBILINOGEN NEGATIVE mg/dL (0.2-1.0)
[2018-04-19 16:21] LABS: EPI CELLS RARE /HPF (FEW)
[2018-04-19 16:30] LABS: ALBUMIN 3.6 g/dl (3.4-5.0); ALK PHOS 93 U/L (45-117); ANION GAP 7 MMOL/L (8-16); BILIRUBIN,TOTAL 0.6 mg/dL (0.2-1); BLOOD UREA NITROGEN 9 mg/dL (7-18); CALCIUM 9.1 mg/dL (8.5-10.1); CHLORIDE 111 mmol/L (98-107); CO2 26 mmol/L (21-32); GLUCOSE,RANDOM 109 mg/dL (74-106); POTASSIUM 4.1 mmol/L (3.5-5.1); SGOT/AST 13 U/L (15-37); SGPT/ALT 14 U/L (13-61); SODIUM 144 mmol/L (136-145); TOT PROT 7.1 g/dl (6.4-8.2)
[2018-04-19] MEDS ORDERED: CEFTRIAXONE 1 GM in DEXTROSE 5%-WATER - 50 ML IVPB ONE (16:30)
[2018-04-19] MEDS ORDERED: ACETAMINOPHEN 325 MG TABLET (FP) PO ONE (16:32)
[2018-04-19] MEDS ORDERED: CEFTRIAXONE 1 GM/50 ML BAG ONE (16:34)
[2018-04-19] MEDS ORDERED: ACETAMINOPHEN 325 MG TABLET (FP) ONE (16:34)
[2018-04-19 16:40] LABS: BASO % 0.1 % (0-2.0); HEMATOCRIT 41.1 % (32.4-45.2); HEMOGLOBIN 14.4 GM/dL (10.7-15.3); LYMPH % 6.8 % (8-40); MCH 31.6 pg (25.7-33.7); MCHC 35.1 g/dl (32.0-36.0); MEAN CELL VOLUME 90.1 fl (80-96); MEAN PLT VOLUME 8.2 fl (7.5-11.1); MONO % 9.8 % (3.8-10.2); NEUT % 82.3 % (42.8-82.8); PLATELET COUNT 192 K/MM3 (134-434); RBC 4.57 M/mm3 (3.60-5.2); RDW 12.6 % (11.6-15.6); WHITE BLOOD COUNT 9.8 K/mm3 (4.0-10.0)
[2018-04-19 18:08] VITALS: BP 104/53; PULSE 88; TEMP 100.8
== END 2018-04-19 19:11 | disposition home or self-care (01) ==
LOC: JER 14:54
PROC: 3E03329 Introduction of Other Anti-infective into Peripheral Vein, Percutaneous Approach (ICD-10-PCS; principal; 2018-04-19)
PROC: 3E033GC Introduction of Other Therapeutic Substance into Peripheral Vein, Percutaneous Approach (ICD-10-PCS; 2018-04-19)
PROC: 3E0333Z Introduction of Anti-inflammatory into Peripheral Vein, Percutaneous Approach (ICD-10-PCS; 2018-04-19)
DX: N12 Tubulo-interstitial nephritis, not specified as acute or chronic (principal); F43.10 Post-traumatic stress disorder, unspecified; Z87.440 Personal history of urinary (tract) infections
CPT/HCPCS: 36415; 74176-TC; 80053; 81003; 81015; 85025; 87086; 87186; 87804; 99283-25; J7030

== ENCOUNTER 2018-07-12 17:12 | Emergency (ER) | payer OTHER ==
--- NOTE | 2018-07-12 17:34 | PDOC ---
Rapid Medical Evaluation Time Seen by Provider: 07/12/18 17:33 Medical Evaluation: Allergies Allergy/AdvReac Type Severity Reaction Status Date / Time No Known Allergies Allergy Verified 07/12/18 17:33 07/12/18 17:33 I have performed a brief in-person evaluation of this patient. The patient presents with a chief complaint of:R flank pain w/ nausea and dysuria x 3 days. H/o renal stones, no surgery Pertinent physical exam findings:R CVAT I have ordered the following:labs/ua/CT The patient will proceed to the ED for further evaluation. Discharge Disposition - Diagnosis Flank pain - Referrals - Patient Instructions - Post Discharge Activity
[2018-07-12 17:36] VITALS: BMI 29.0
[2018-07-12 17:56] LABS: BASO % 0.6 % (0-2.0); EOS % 1.4 % (0-4.5); HEMATOCRIT 44.1 % (32.4-45.2); HEMOGLOBIN 14.6 GM/dL (10.7-15.3); LYMPH % 13.1 % (8-40); MCH 30.5 pg (25.7-33.7); MEAN CELL VOLUME 92.3 fl (80-96); MEAN PLT VOLUME 7.5 fl (7.5-11.1); MONO % 4.6 % (3.8-10.2); NEUT % 80.3 % (42.8-82.8); PLATELET COUNT 211 K/MM3 (134-434); RBC 4.78 M/mm3 (3.60-5.2); RDW 13.9 % (11.6-15.6); WHITE BLOOD COUNT 9.5 K/mm3 (4.0-10.0)
--- NOTE | 2018-07-12 18:14 | PDOC ---
History of Present Illness - General Chief Complaint: Pain, Acute Stated Complaint: SENT BY PCP Time Seen by Provider: 07/12/18 17:33 - History of Present Illness Initial Comments: 07/12/18 18:13 Ms. Barber is a 48 yo female w/ pmh of PTSD, chronic neck pain, chronic lower back pain, recurrent UTIs, total hysterectomy s/p tubal-ovarian abscess, prior kidney stones who presents for evaluation of 2 day history of pain with urination as well as R flank pain. Patient reports symptoms started Thursday evening with R flank pain which has been constant. Patient further reports having to strain with urination over this time period and pain "at the end" of her micturation. The patient denies chest pain, shortness of breath, headache and dizziness. Denies fever, chills, nausea, vomit, diarrhea and constipation. Past History - Past Medical History Allergies/Adverse Reactions: Allergies Allergy/AdvReac Type Severity Reaction Status Date / Time No Known Allergies Allergy Verified 07/12/18 17:33 Home Medications: Ambulatory Orders Alprazolam [Xanax] 2 mg PO BID 12/23/16 Acetaminophen [Tylenol -] 500 mg PO Q4H PRN 07/12/18 Ergocalciferol (Vitamin D2) [Vitamin D2] 50,000 unit PO MARTIN 07/12/18 Levofloxacin [Levaquin] 750 mg PO DAILY #6 tablet 07/12/18 Oxycodone HCl/Acetaminophen [Percocet 10-325 mg Tablet] 1 each PO Q8H PRN Anemia: No Asthma: No Cancer: No Cardiac Disorders: No CVA: No COPD: No CHF: No Dementia: No Diabetes: No GI Disorders: Yes (congenital malrotation) Disorders: No HTN: No Hypercholesterolemia: No Liver Disease: No Psychiatric Problems: Yes (PTSD ANXIETY AND DEPRESSION) Seizures: No Thyroid Disease: (NODULE - "WATCHING") - Surgical History Abdominal Surgery: Yes (ovarian cyst) Appendectomy: No Cholecystectomy: Yes Neurologic Surgery: Yes (cervical (neck)) Orthopedic Surgery: Yes (RT SHOULDER TEAR REPAIR) - Family Disease History Family Disease History: Diabetes: Grandparents (paternal grandfather), Heart Disease: Grandparents - Suicide/Smoking/Psychosocial Hx Smoking Status: Yes Smoking History: Current every day smoker Have you smoked in the past 12 months: Yes Number of Cigarettes Smoked Daily: 18 Information on smoking cessation initiated: No 'Breaking Loose' booklet given: 11/28/16 Hx Alcohol Use: No Drug/Substance Use Hx: No Substance Use Type: None Hx Substance Use Treatment: No Review of Systems - Review of Systems Comments:: 07/12/18 18:13 GENERAL/CONSTITUTIONAL: No fever or chills. No weakness. HEAD, EYES, EARS, NOSE AND THROAT: No change in vision. No ear pain or discharge. No sore throat. CARDIOVASCULAR: No chest pain or shortness of breath RESPIRATORY: No cough, wheezing, or hemoptysis. GASTROINTESTINAL: +Abdominal pain over same time period. Patient reports "she is gassy." No nausea, vomiting, diarrhea or constipation. GENITOURINARY: +Dysuria w/ R flank pain as described. MUSCULOSKELETAL: No joint or muscle swelling or pain. No neck or back pain. SKIN: No rash NEUROLOGIC: No headache, vertigo, loss of consciousness, or change in strength/ sensation. ENDOCRINE: No increased thirst. No abnormal weight change HEMATOLOGIC/LYMPHATIC: No anemia, easy bleeding, or history of blood clots. ALLERGIC/IMMUNOLOGIC: No hives or skin allergy. *Physical Exam - Vital Signs Last Vital Signs Temp Pulse Resp BP Pulse Ox 98.2 F 102 H 18 171/116 H 98 07/12/18 17:34 07/12/18 17:34 07/12/18 17:34 07/12/18 17:34 07/12/18 17:34 - Physical Exam Comments: 07/12/18 18:13 GENERAL: Awake, alert, and fully oriented, in no acute distress HEAD: No signs of trauma, normocephalic, atraumatic EYES: PERRLA, EOMI, sclera anicteric, conjunctiva clear ENT: Auricles normal inspection, hearing grossly normal, nares patent, oropharynx clear without exudates. Moist mucosa NECK: Normal ROM, supple, no lymphadenopathy, JVD, or masses LUNGS: No distress, speaks full sentences, clear to auscultation bilaterally HEART: Regular rate and rhythm, normal S1 and S2, no murmurs, rubs or gallops, peripheral pulses normal and equal bilaterally. ABDOMEN: +R flank and diffuse abdominal TTP. Soft, normoactive bowel sounds. No guarding, no rebound. No masses EXTREMITIES: Normal inspection, Normal range of motion, no edema. No clubbing or cyanosis. NEUROLOGICAL: Cranial nerves II through XII grossly intact. Normal speech, normal gait, no focal sensorimotor deficits SKIN: Warm, Dry, normal turgor, no rashes or lesions noted. ED Treatment Course - LABORATORY CBC & Chemistry Diagram: 07/12/18 17:44 07/12/18 17:44 Medical Decision Making - Medical Decision Making 07/12/18 18:28 Ms. Barber is a 48 yo female w/ pmh as described who presents for evaluation of symptoms c/w pyelo vs. nephrolithiasis vs. uti. Patient evaluated with labs as below as well as CT abd/pelvis. Patient is s/p full hysterectomy and does not require negative hcg at this time for CT scan. Patient labs significant for UTI as below. Labs otherwise grossly wnl. CT scan c/w pyelonephritis. Patient will follow-up with primary care provider outpatient. No concern for acute process at this time. Discharging to home. Laboratory Results - last 24 hr 07/12/18 07/12/18 07/12/18 17:44 17:44 20:30 WBC 9.5 RBC 4.78 Hgb 14.6 Hct 44.1 MCV 92.3 MCH 30.5 MCHC 33.0 RDW 13.9 D Plt Count 211 MPV 7.5 Absolute Neuts (auto) 7.6 Neutrophils % 80.3 Lymphocytes % 13.1 D Monocytes % 4.6 Eosinophils % 1.4 Basophils % 0.6 D Nucleated RBC % 0 Sodium 141 Potassium 4.1 Chloride 110 H Carbon Dioxide 29 Anion Gap 3 L BUN 11 Creatinine 1.1 Est GFR (CKD-EPI)AfAm 69.73 Est GFR (CKD-EPI)NonAf 60.16 Random Glucose 117 H Calcium 9.3 Total Bilirubin 0.3 AST 15 ALT 24 Alkaline Phosphatase 93 Total Protein 7.3 Albumin 4.0 Urine Color Yellow Urine Appearance Cloudy Urine pH 5.5 Ur Specific [place] 1.017 Urine Protein Negative Urine Glucose (UA) Negative Urine Ketones Trace H Urine Blood Trace Urine Nitrite Negative Urine Bilirubin Negative Urine Urobilinogen 0.2 Ur Leukocyte Esterase 3+ H Urine WBC (Auto) 180 Urine RBC (Auto) 6 Urine Casts (Auto) 1 U Epithel Cells (Auto) 2.8 Urine Bacteria (Auto) 1359.7 Urine HCG, Qual Negative *DC/Admit/Observation/Transfer Diagnosis at time of Disposition: Flank pain, Pyelonephritis - Discharge Dispostion Disposition: HOME - Prescriptions Prescriptions: Levofloxacin [Levaquin] 750 mg PO DAILY #6 tablet - Referrals Referrals: Dharmesh Paez MD [Primary Care Provider] - Ayan Hernández MD [Staff Physician] - - Patient Instructions Printed Discharge Instructions: DI for Kidney Infection Additional Instructions: You were evaluated today in the ER for your pain. We evaluated you with labs as well as CT evaluation and found you to have a kidney infection. Please follow- up with primary care provider this week for further evaluation. We have also provided you with urology information you may use for follow-up as well if you do not already have a urologist. Antibiotics have been sent to your pharmacy. Please take all medications as proscribed. Return to ER if any continued pain, fever, chills, or other concerning symptoms. - Post Discharge Activity
[2018-07-12 18:21] LABS: BILIRUBIN,TOTAL 0.3 mg/dL (0.2-1); CALCIUM 9.3 mg/dL (8.5-10.1); CREATININE 1.1 mg/dL (0.55-1.3); POTASSIUM 4.1 mmol/L (3.5-5.1); TOT PROT 7.3 g/dl (6.4-8.2)
[2018-07-12] MEDS ORDERED: ACETAMINOPHEN 1000 MG/100 ML VIAL (NON FORMULARY) IVPB ONE (18:24)
[2018-07-12] MEDS ORDERED: SODIUM CHLORIDE 1,000 ML IV STA (18:24)
[2018-07-12] MEDS ORDERED: ACETAMINOPHEN INJECTION 100 ML IVPB ONE (20:20)
[2018-07-12 21:22] LABS: HCG,QUALITATIVE URINE Negative
[2018-07-12 21:24] LABS: EPI CELLS 2.8 /HPF (0-5/HPF); PH,URINE 5.5 (5.0-8.0); URINE APPEARANCE CLOUDY; URINE BACTERIA 1359.7 /hpf (NEGATIVE); URINE BILIRUBIN NEGATIVE (NEGATIVE); URINE CASTS 1 /lpf (0-8); URINE COLOR YELLOW; URINE GLUCOSE (UA) NEGATIVE (NEGATIVE); URINE KETONE TRACE (NEGATIVE); URINE LEUK ESTERASE 3+ (NEGATIVE); URINE NITRITE NEGATIVE (NEGATIVE); URINE PROTEIN NEGATIVE (NEGATIVE); URINE RBC 6 /hpf (0-4); URINE UROBILINOGEN 0.2 mg/dL (0.2-1.0); URINE WBC 180 /hpf (0-5)
[2018-07-12] MEDS ORDERED: CEFTRIAXONE 1,000 MG in DEXTROSE 5%-WATER - 50 ML IVPB ONE (21:57)
--- NOTE | 2018-07-12 22:32 | PDOC ---
Documentation entered by Dale Wallis SCRIBE, acting as scribe for Barbara Siu MD. Barbara Siu MD: This documentation has been prepared by the [employer] Xhesika, SCRIBE, under my direction and personally reviewed by me in its entirety. I confirm that the documentation accurately reflects all work, treatment, procedures, and medical decision making performed by me. Attending Attestation - Resident Resident Name: Marcel Alarcon - ED Attending Attestation I have performed the following: I have examined & evaluated the patient, The case was reviewed & discussed with the resident, I agree w/resident's findings & plan, Exceptions are as noted - HPI HPI: 07/12/18 18:34 48 yo female has c/o flank pain and diffuse lower abd pain,pain with micturation 07/12/18 18:41 The patient is a 48 year old female with a significant past medical history of Kidney stones, congenital malrotation, PTSD, anxiety, chronic lower back pain, recurrent UTIs, total hysterectomy s/p tubal-ovarian abscess and depression who presents to our ED by PCP recommendation for further evaluation. The patient states she is endorsing 2 days of constant R flank pain, diffuse abdominal pain and pain with urination "at the end" of her micturition. The patient denies chest pain, shortness of breath or dizziness. The patient denies fever, chills, nausea, diarrhea or constipation. Allergies: NKA Past surgical history: Ovarian cyst removal. Cervical neck neurosurgery. Right shoulder tear repair. Social history: Everyday smoker. Moderate alcohol use. No reported drug use. PCP: Dharmesh Rodriguez Therapist: Melody Calvo - Physicial Exam PE: 07/12/18 22:27 48 yo female p/w history of chronic pain,and has low back pain and dysuria head ncat neck no jvd,no bruits lungs cta b/l cvs [id number] abd no rebound,no guarding skin warm and dry extremities full range of motion neuro axox3,ambulatory - Medical Decision Making 07/12/18 22:29 pt has UTI ans some back pain IMP -pyelonephritis and will be started on antibiotics she is to follow up with her PCP this week 07/12/18 22:30 ct scan abd/pel: c/w pyelonephritis no obstructive renal calculus 07/12/18 22:31 labs reviewed no leukocytosis, normal creatinine and bun
[2018-07-12] MEDS ORDERED: KETOROLAC TROMETHAMINE 30 MG/1 ML VIAL IVPUSH ONE (23:05)
[2018-07-12] MEDS ORDERED: KETOROLAC TROMETHAMINE 30 MG/1 ML VIAL ONE (23:12)
[2018-07-13 00:37] VITALS: BP 147/98; PULSE 92; TEMP 98
== END 2018-07-13 00:52 | disposition home or self-care (01) ==
LOC: JER 17:12
PROC: 3E033NZ Introduction of Analgesics, Hypnotics, Sedatives into Peripheral Vein, Percutaneous Approach (ICD-10-PCS; principal; 2018-07-12)
PROC: 3E033NZ Introduction of Analgesics, Hypnotics, Sedatives into Peripheral Vein, Percutaneous Approach (ICD-10-PCS; 2018-07-12)
PROC: 3E0333Z Introduction of Anti-inflammatory into Peripheral Vein, Percutaneous Approach (ICD-10-PCS; 2018-07-12)
PROC: 3E0337Z Introduction of Electrolytic and Water Balance Substance into Peripheral Vein, Percutaneous Approach (ICD-10-PCS; 2018-07-12)
DX: R10.31 Right lower quadrant pain (principal); N12 Tubulo-interstitial nephritis, not specified as acute or chronic
CPT/HCPCS: 36415; 74177-TC; 80053; 81003; 84703; 85025; 87086; 87186; 87389; 87491; 87591; 99283-25; J0131; J7030

== ENCOUNTER 2021-01-05 21:14 | Emergency (ER) | payer OTHER ==
[2021-01-05 21:25] VITALS: BP 135/92; PULSE 90; TEMP 98.6; BMI 29.0
[2021-01-05] MEDS ORDERED: CEPHALEXIN MONOHYDRATE 500 MG CAPSULE (UD) PO ONE (21:25)
[2021-01-05] MEDS ORDERED: CEPHALEXIN MONOHYDRATE 500 MG CAPSULE (UD) ONE (21:31)
== END 2021-01-05 21:35 | disposition home or self-care (01) ==
LOC: FER 21:14
DX: S80.869A Insect bite (nonvenomous), unspecified lower leg, initial encounter (principal)
CPT/HCPCS: 99283-25

== ENCOUNTER 2021-01-09 19:34 | Emergency (ER) | payer SELFPAY ==
[2021-01-09 19:47] VITALS: BP 129/82; PULSE 83; TEMP 98.2; BMI 25.0
== END 2021-01-09 20:14 | disposition home or self-care (01) ==
LOC: FER 19:34
DX: S40.861A Insect bite (nonvenomous) of right upper arm, initial encounter (principal); S40.862A Insect bite (nonvenomous) of left upper arm, initial encounter; S80.861A Insect bite (nonvenomous), right lower leg, initial encounter; S80.862A Insect bite (nonvenomous), left lower leg, initial encounter; W57.XXXA Bitten or stung by nonvenomous insect and other nonvenomous arthropods, initial encounter
CPT/HCPCS: 99282-25

== ENCOUNTER 2021-05-31 18:20 | Emergency (ER) | payer OTHER ==
[2021-05-31 19:41] VITALS: BP 112/69; PULSE 74; TEMP 98.1; BMI 31.6
[2021-05-31] MEDS ORDERED: hydrOXYzine HCL 100 MG/2 ML VIAL IM ONE (19:58)
[2021-05-31] MEDS ORDERED: DEXAMETHASONE SOD PHOSPHATE 10 MG/1 ML VIAL IVPUSH ONE (20:05)
[2021-05-31] MEDS ORDERED: hydrOXYzine HCL 50 MG/ML VIAL IM ONE (20:06)
[2021-05-31] MEDS ORDERED: DEXAMETHASONE SOD PHOSPHATE 10 MG/1 ML VIAL ONE (20:20)
[2021-05-31] MEDS ORDERED: PERMETHRIN 5% TOPICAL CREAM 60 GM TUBE TP ONE (20:43)
[2021-05-31 20:45] LABS: BASO % 0.8 % (0-2.0); EOS % 8.5 % (0-4.5); HEMATOCRIT 36.1 % (32.4-45.2); HEMOGLOBIN 12.6 GM/dL (10.7-15.3); MCH 30.3 pg (25.7-33.7); MEAN CELL VOLUME 86.7 fl (80-96); MEAN PLT VOLUME 7.7 fl (7.5-11.1); MONO % 7.1 % (3.8-10.2); NEUT % 49.6 % (42.8-82.8); PLATELET COUNT 240 10^3/uL (134-434); RBC 4.16 M/mm3 (3.60-5.2); WHITE BLOOD COUNT 7.3 K/mm3 (4.0-10.0)
[2021-05-31 21:09] LABS: CALCIUM 9.1 mg/dL (8.5-10.1)
[2021-05-31 21:10] LABS: ALBUMIN 3.4 g/dl (3.4-5.0); BLOOD UREA NITROGEN 13.8 mg/dL (7-18); MAGNESIUM 2.2 mg/dL (1.8-2.4)
[2021-05-31 21:13] LABS: CREATININE 0.8 mg/dL (0.55-1.3)
[2021-05-31 21:14] LABS: BILIRUBIN,TOTAL 0.3 mg/dL (0.2-1); TOT PROT 6.9 g/dl (6.4-8.2)
[2021-05-31 21:18] LABS: N-TERMINAL BNP 82.6 pg/ml (5-125)
== END 2021-06-01 00:56 | disposition home or self-care (01) ==
LOC: JER 18:20
PROC: 3E033GC Introduction of Other Therapeutic Substance into Peripheral Vein, Percutaneous Approach (ICD-10-PCS; principal; 2021-05-31)
PROC: 3E023GC Introduction of Other Therapeutic Substance into Muscle, Percutaneous Approach (ICD-10-PCS; 2021-05-31)
DX: B86 Scabies (principal)
CPT/HCPCS: 36415; 74177-TC; 80053; 83735; 83880; 85025; 93005; 93010; 99285-25; J1100; Q9967

== ENCOUNTER 2021-09-04 21:10 | Emergency (ER) | payer OTHER ==
[2021-09-04 21:27] VITALS: BP 146/84; PULSE 79; TEMP 98; BMI 25.8
== END 2021-09-04 22:51 | disposition home or self-care (01) ==
LOC: FER 21:10
DX: L03.115 Cellulitis of right lower limb (principal); L03.116 Cellulitis of left lower limb
CPT/HCPCS: 99283-25

== ENCOUNTER 2024-09-07 06:54 | Emergency (ER) | payer OTHER ==
[2024-09-07 07:17] VITALS: BP 132/77; PULSE 64; RESP 20; TEMP 98.1; BMI 25.0
[2024-09-07] MEDS: BACITRACIN ZINC 15 GM TUBE TOPICAL OINTMENT TP ONE (07:56)
[2024-09-07] MEDS ORDERED: ACETAMINOPHEN 325 MG TABLET (FP) ONE (08:06)
[2024-09-07] MEDS: ACETAMINOPHEN 500 MG TABLET (FP) PO ONE (08:11)
[2024-09-07 16:28] LABS: HCV DIAGNOSTIC IN-HOUSE W/RFLX NON-REACTIVE (NONREACTIVE)
[2024-09-07 16:34] LABS: HIV INTERPRETATION NEGATIVE (NEGATIVE)
== END 2024-09-07 12:52 | disposition home or self-care (01) ==
LOC: JER 06:54 → JERFT 06:54
DX: S90.821A Blister (nonthermal), right foot, initial encounter (principal); S90.822A Blister (nonthermal), left foot, initial encounter; X58.XXXA Exposure to other specified factors, initial encounter
CPT/HCPCS: 36415; 82962; 86803; 87389; 99283-25